=== PATIENT | female | born 1980 | race African-American/Black ===

== ENCOUNTER 2019-05-14 18:26 | Emergency (ER) | payer BC, OTHER ==
[~2019-05-14] VITALS: Ht 157 cm; Wt 95.2 kg
[2019-05-14] MEDS ORDERED: ALB0.5V INH (18:37)
[2019-05-14] MEDS ORDERED: AMOX-358 PO (18:44)
--- NOTE | 2019-05-14 18:45 | ED EENT ---
History of Present Illness General Chief Complaint: Dental Problems/Pain Stated Complaint: FACE SWOLLEN Nursing Triage Note: left dental caries/broken tooth, right sided facial pain. facial swelling. Source: patient Exam Limitations: no limitations History of Present Illness Date Seen by Provider: May 14, 2019 Time Seen by Provider: 18:41 Initial Comments To ER with reports of right maxillary and left mandibular pain and subjective swelling since this morning, this caused her to miss work. She'll need a work note. Timing/Duration: abrupt Severity: moderate Location: dental Prearrival Treatment: no prearrival treatment Associated Symptoms: facial pain/swelling Allergies and Home Medications Allergies Coded Allergies: acetaminophen (Verified Allergy, Unknown, 05/14/19) codeine (Verified Allergy, Unknown, 05/14/19) oxycodone (Verified Allergy, Unknown, 05/14/19) Home Medications Albuterol Sulfate 2.5 Mg/0.5 Ml Vial.neb, 2.5 MG INH Q4H, (Reported) Patient Home Medication List Home Medication List Reviewed: Yes Review of Systems Review of Systems Constitutional: see HPI Eyes: No Symptoms Reported Ears: No Symptoms Reported Nose: no symptoms reported Mouth: see HPI Throat: no symptoms reported Respiratory: no symptoms reported Cardiovascular: no symptoms reported Gastrointestinal: no symptoms reported Past Lrjieky-Tkjdpm-Ckxhrv Hx Patient Social History Alcohol Use: Denies Use Recreational Drug Use: No Smoking Status: Never a Smoker 2nd Hand Smoke Exposure: No Recent Foreign Travel: No Contact w/Someone Who Travel: No Recent Infectious Disease Expo: No Recent Hopitalizations: No Physical Abuse: No Sexual Abuse: No Mistreated: No Fear: No Immunizations Up To Date Tetanus Booster (TDap): Unknown Seasonal Allergies Seasonal Allergies: No Past Medical History Surgeries: Yes Orthopedic, Renal, Tubal Ligation Respiratory: Yes Asthma Cardiac: No Neurological: No : 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 oz. kg; 38.00 BMI Method: General Appearance: WD/WN, no apparent distress Eyes: bilateral eye normal inspection, bilateral eye PERRL, bilateral eye EOMI Ears: bilateral ear auricle normal, bilateral ear canal normal, bilateral ear TM normal Mouth/Throat: pharynx normal, other (no gingival buccal tenderness to palpation though there are any teeth all throughout the mouth with erosion caries fractures and gingivitis. No fluctuance to suggest abscess or swelling that is palpable or visible to suggest cellulitis or fascial abscess) Neck: non-tender, full range of motion; No lymphadenopathy (R), No lymphadenopathy (L) Respiratory: no respiratory distress, no accessory muscle use Neurologic/Psychiatric: alert, normal mood/affect, oriented x 3 Skin: normal color, warm/dry Progress/Results/Core Measures Results/Orders Blood Pressure Mean: 96 POS Departure Impression Primary Impression: Dental caries Disposition: HOME, SELF-CARE Condition: Stable Departure-Patient Inst. Decision time for Depature: 18:43 Patient Instructions: Dental Pain (DC) Add. Discharge Instructions: 1. Follow-up with your dentist. Call tomorrow to make an appointment to be seen. Return to ER for any concerns. Antibiotic as directed, take them with food. All discharge instructions reviewed with patient and/or family. Voiced understanding. Scripts Amoxicillin/Potassium Clav (Augmentin 875-125 Tablet) 1 Each Tablet 1 EACH PO BID, #14 TAB 0 Refills Prov: EVER PEREZ APRN 05/14/19 Work/School Note: Work Release Form Date Seen in the Emergency Department: May 14, 2019 Return to Work: May 15, 2019 EVER PEREZ APRN May 14, 2019 18:45 POS
[2019-05-14 18:54] VITALS: BP 131/79
[2019-05-14] MEDS ORDERED: AUGMENTIN 875 MG TAB (AMOXICILLIN/CLAVULANATE) PO SCH (19:00)
== END 2019-05-14 18:54 | disposition home or self-care (01) ==
LOC: ER 18:28
DX: K02.9 Dental caries, unspecified (principal); J45.909 Unspecified asthma, uncomplicated; Z98.51 Tubal ligation status; Z88.6 Allergy status to analgesic agent; Z88.5 Allergy status to narcotic agent
CPT/HCPCS: 99283

== ENCOUNTER 2019-12-16 18:04 | Emergency (ER) | payer BC ==
[~2019-12-16] VITALS: Ht 154 cm; Wt 97.9 kg
[~2019-12-16 18:04] MED LIST: ALB0.5V INH; AMOX-358 PO
--- NOTE | 2019-12-16 18:50 | NUR ---
PT REFUSED TO GIVE UA STATES JUST WANT AN X-RAY
[2019-12-16 19:03] VITALS: BP 132/99
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
--- OUTSIDE RECORDS SUMMARY | 2019-12-16 22:12 | XMS REPORT | Continuity of Care Document ---
Author Organization Unknown Address Unknown Phone Unavailable Allergies Active Description Code Type Severity Reaction Onset Reported/Identified Relationship to Patient Clinical Status Yes acetaminophen [id number] Sj g Allergy Unknown N/A 05/14/2019 Yes codeine [id number] Drug Allergy Unknown N/A 05/14/2019 Yes oxycodone [id number] Drug Allergy Unknown N/A 05/14/2019 Medications There is no data. Problems Date Dx Coded Attending Type Code Diagnosis Diagnosed By 05/14/2019 EVER PEREZ APRN Ot J45.909 UNSPECIFIED ASTHMA, UNCOMPLICATED 05/14/2019 EVER PEREZ APRN Ot K02 .9 DENTAL CARIES, UNSPECIFIED 05/14/2019 EVER PEREZ APRN Ot R22 .0 LOCALIZED SWELLING, MASS AND LUMP, HEAD 05/14/2019 EVER PEREZ APRN Ot Z88 .5 ALLERGY STATUS TO NARCOTIC AGENT STATUS 05/14/2019 EVER PEREZ APRN Ot Z88 .6 ALLERGY STATUS TO ANALGESIC AGENT STATUS 05/14/2019 EVER PEREZ APRN Ot Z98.51 TUBAL LIGATION STATUS 05/16/2019 EVER PEREZ APRN Ot J45.909 UNSPECIFIED ASTHMA, UNCOMPLICATED 05/16/2019 EVER PEREZ APRN Ot K02 .9 DENTAL CARIES, UNSPECIFIED 05/16/2019 EVER PEREZ APRN Ot R22 .0 LOCALIZED SWELLING, MASS AND LUMP, HEAD 05/16/2019 EVER PEREZ APRN Ot Z88 .5 ALLERGY STATUS TO NARCOTIC AGENT STATUS 05/16/2019 EVER PEREZ APRN Ot Z88 .6 ALLERGY STATUS TO ANALGESIC AGENT STATUS 05/16/2019 EVER PEREZ APRN Ot Z98.51 TUBAL LIGATION STATUS Procedures There is no data. Results There is no data. Encounters ACCT No. Visit Date/Time Discharge Status Pt. Type Provider Facility Loc./Unit Complaint [id number] 12/16/2019 18:06:00 020 19:04:00 DIS Emergency ALEJANDRO LAGUNAS DO a [facility] ER BACK PAIN [id number] 05/14/2019 18:28:00 019 18:54:00 DIS Emergency EVER PEREZ APRN [facility] ER FACE SWOLLEN
== END 2019-12-16 19:04 | disposition left against medical advice (07) ==
LOC: EDUNIT# 18:04 → ER 18:06
DX: M54.5 Low back pain (principal); J45.909 Unspecified asthma, uncomplicated; Z88.6 Allergy status to analgesic agent; Z88.5 Allergy status to narcotic agent; W22.8XXA Striking against or struck by other objects, initial encounter; Y92.59 Other trade areas as the place of occurrence of the external cause
CPT/HCPCS: 99281

== ENCOUNTER → 2019-12-23 | Outpatient (REF) ==
--- NOTE | 2019-12-23 10:13 | Diagnostic Imaging Report ---
INDICATION: Injury with back pain. FINDINGS: Frontal and lateral lumbar spine radiographs reveal normal body heights aligned anatomically. The disc space is preserved. No identifiable fracture. Sacrococcygeal curvature appeared normal. The SI joints showed no diastases. IMPRESSION: Unremarkable radiographic appearance of the anatomically aligned lumbar spine. Dictated by: Dictated on workstation # [id number]
== END ==
LOC: OCC 09:38
PROVIDERS: ATTEND Family Medicine
DX: M54.9 Dorsalgia, unspecified (principal)
CPT/HCPCS: 72100

== ENCOUNTER → 2020-01-21 | Outpatient (REF) ==
--- NOTE | 2020-01-23 08:12 | Diagnostic Imaging Report ---
EXAMINATION: MRI lumbar spine without contrast on 01/21/2020. INDICATION: Low back pain and low back injury. COMPARISON: No prior MRI study is available for comparison. FINDINGS: Curvature and alignment of the lumbar spine are normal. Vertebral body heights are maintained. There is no geographic marrow lesion or acute compression fracture. There is fairly normal height and signal intensity to the lumbar discs, apart from some mild desiccation at the L5-S1 level. The conus is unremarkable at the L1 level. T12-L1: The central canal and neural foramina are widely patent. L1-L2: Central canal and neural foramina are widely patent. L2-L3: Central canal and neural foramina are widely patent. L3-L4: Central canal and neural foramina are widely patent. L4-L5: Central canal and neural foramina are widely patent. L5-S1: There is some mild broad-based disc bulging present but no resultant central canal stenosis is seen. There is some narrowing of the lateral recesses, bilaterally. Mild neural foraminal narrowing is present as well, bilaterally. Paraspinous tissues are unremarkable. IMPRESSION: Mild L5-S1 degenerative disc disease with mild broad-based disc bulging. This does result in narrowing of the lateral recesses and neural foramina, bilaterally. No central canal stenosis is detected. Dictated by: Dictated on workstation # [id number]
== END ==
LOC: RAD 14:00
PROVIDERS: ATTEND Family Medicine
DX: M51.37 Other intervertebral disc degeneration, lumbosacral region (principal)
CPT/HCPCS: 72148

== ENCOUNTER 2020-03-22 22:37 | Emergency (ER) | payer BC ==
[~2020-03-22] VITALS: Ht 134 cm; Wt 99.7 kg
[2020-03-23 00:14] LABS: BILIRUBIN,URINE NEGATIVE (NEGATIVE); CLARITY,URINE SL CLOUDY; COLOR,URINE YELLOW; GLUCOSE, URINE (UA) NEGATIVE (NEGATIVE); KETONES,URINE NEGATIVE (NEGATIVE); LEUKOCYTE ESTERASE ,URINE NEGATIVE (NEGATIVE); NITRITE,URINE NEGATIVE (NEGATIVE); PROTEIN,URINE NEGATIVE (NEGATIVE)
[2020-03-23 00:23] LABS: BACTERIA,URINE FEW /HPF
[2020-03-23] MEDS ORDERED: PRD20T PO (00:55)
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
[2020-03-23] MEDS ORDERED: KETOROLAC 30 MG/ML VIAL IM ONE (01:00)
[2020-03-23 01:13] VITALS: BP 150/102
== END 2020-03-23 01:13 | disposition home or self-care (01) ==
LOC: EDUNIT# 22:37 → ER 22:39
DX: M54.16 Radiculopathy, lumbar region (principal); M51.26 Other intervertebral disc displacement, lumbar region; E66.9 Obesity, unspecified; Z68.43 Body mass index [BMI] 50.0-59.9, adult; J45.909 Unspecified asthma, uncomplicated; Z88.5 Allergy status to narcotic agent; Z88.6 Allergy status to analgesic agent; Z79.52 Long term (current) use of systemic steroids
CPT/HCPCS: 81000; 99284

== ENCOUNTER → 2021-06-24 | Outpatient (CLI) | payer OTHER ==
[~2021-06-24] MED LIST changes: +PRD20T PO
--- NOTE | 2021-06-24 12:00 | Diagnostic Imaging Report ---
Clinical indications: Patient has low back pain from heavy lifting and getting hit in the back by a door. Exam: MRI of the lumbar spine performed without IV contrast. Sagittal T2, sagittal T1, sagittal T2 fat-sat, and axial T2. Comparison: MRI of the lumbar spine without contrast dated 01/21/2020. Findings: Five lumbar type vertebra are identified. Lumbar spine has normal alignment with no fracture or dislocation. The lumbar vertebra have normal T1 and T2 signal. The visualized portions of the distal spinal cord, conus medullaris, and cauda equina have normal anatomic appearance. The conus medullaris tip is seen at the lower L1 vertebral body level. No paraspinal soft tissue abnormality is seen. There is no significant central spinal canal or neural foramen narrowing. Besides the L5-S1 level, there is no significant degenerative disease. The intervertebral disk spaces are well-preserved. L1-L2: Unremarkable. L2-L3: Unremarkable. L3-L4: Unremarkable. L4-L5: Unremarkable. L5-S1: There is interval slight increased size of the small posterior disk extrusion/herniation with annular tear. There is low T2 degenerative disk signal changes. There is no significant central canal stenosis. There is stable mild bilateral neural foraminal narrowing. There is minimal bilateral facet arthropathy. Impression: 1: Slight increased size of a small L5-S1 posterior disk herniation with annular tear. There is no significant central canal stenosis. There are stable minimal bilateral neural foraminal narrowing. 2: Otherwise, the remainder of the lumbar spine is unremarkable. Dictated by: Dictated on workstation # [id number]
== END ==
LOC: RAD 10:15
PROVIDERS: ATTEND Independent Medical Examiner
DX: M51.27 Other intervertebral disc displacement, lumbosacral region (principal); M51.37 Other intervertebral disc degeneration, lumbosacral region; M48.07 Spinal stenosis, lumbosacral region
CPT/HCPCS: 72148

== ENCOUNTER 2021-09-12 15:47 | Emergency (ER) | payer OTHER ==
[~2021-09-12] VITALS: Ht 157 cm; Wt 104.0 kg
--- NOTE | 2021-09-12 16:09 | ED Back Pain ---
General Chief Complaint: Back Problems Stated Complaint: HX HERNIATED DISC, BACK PAIN Nursing Triage Note: PT AMB TO [facility] LOWER BACK PA[facility], PT STATES SHE HAS RECENTLY HAD MRI ORDERED BY ARCADIO VILLANUEVA. PT STATES PAIN HAS INCREASED TO 8/10. STATES INJURY OCCURED ALMOST 2 YEARS AGO. Source of Information: Patient Exam Limitations: No Limitations History of Present Illness Date Seen by Provider: Sep 12, 2021 Time Seen by Provider: 16:06 Initial Comments Patient is a 40-year-old female presents ED with back pain. Pain is located to the lower back. She gets numbness and tingling bilateral lower extremities. This has been ongoing pain for the past 2 years from a work injury. Pain is progressive got worse over the past 2 or 3 months. She states now it feels like something is squeezing every time she moves in the lower back. She states she had an MRI performed here that showed L5-S1 posterior disc herniation with annular tear. There is no significant central canal stenosis. Patient has no bowel or urine incontinence or saddle paresthesia. She states the pain is getting worse feels like her back is swollen. She denies fever, chills, chest pain, shortness of breath, headache, dizziness. Patient denies of any lower extremity weakness. Patient states she has seen pain management in the past but they injected in the wrong location. Follow-up with neurosurgery who did not recommend surgery at this time. Patient denies any trauma. Allergies and Home Medications Allergies Coded Allergies: acetaminophen (Verified Allergy, Unknown, 05/14/19) codeine (Verified Allergy, Unknown, 05/14/19) oxycodone (Verified Allergy, Unknown, 05/14/19) Patient Home Medication List Home Medication List Reviewed: Yes Albuterol Sulfate (Albuterol Sulfate) 2.5 Mg/0.5 Ml Vial.neb, 2.5 MG INH Q4H, (Reported) Entered as Reported by: ROSA TINSLEY on 05/14/191836 Amoxicillin/Potassium Clav (Augmentin 875-125 Tablet) 1 Each Tablet, 1 EACH PO BID Prescribed by: EVER PEREZ on 05/14/19 184 Meloxicam (Meloxicam) 15 Mg Tablet, 15 MG PO DAILY Prescribed by: PHILIPPE TREJO on 09/12/21 1626 Methylprednisolone (Medrol Dose pack) 4 Mg Tab, 4 MG PO UD Prescribed by: PHILIPPE TREJO on 09/12/21 1626 Prednisone (Prednisone) 20 Mg Tab, 40 MG PO DAILY Prescribed by: PAULA MCCARTY on 03/23/20 0055 Tramadol HCl (Tramadol HCl) 50 Mg Tablet, 50 MG PO Q6H PRN for PAIN-MODERATE (5- 7) Prescribed by: PHILIPPE TREJO on 09/12/21 162 Review of Systems Constitutional: No chills, No diaphoresis EENTM: No blurred vision, No double vision, No vision loss, No mouth pain, No mouth swelling Respiratory: No cough, No dyspnea on exertion Cardiovascular: No chest pain, No edema, No palpitations Gastrointestinal: No no symptoms reported, No abdominal pain, No diarrhea, No nausea, No vomiting Genitourinary: No decreased output Musculoskeletal: back pain, joint pain; No muscle pain, No muscle stiffness, No muscle cramps Past Bswwegj-Svnwcu-Vimmuw Hx Patient Social History Tobacco Use?: No Substance use?: No Alcohol Use?: No Pt feels they are or have been: No Immunizations Up To Date Tetanus Booster (TDap): Less than 5yrs Seasonal Allergies Seasonal Allergies: No Past Medical History Surgeries: Yes (L WRIST FX/ORIF;R LOWER LEG FX/ORIF;URETERAL SURGERY) Orthopedic, Renal, Tubal Ligation Respiratory: Yes Asthma Cardiac: No Neurological: No Female Reproductive Disorders: Denies [employer] History: Tubal Ligation Genitourinary: Yes (URETERAL SURGERY ) Gastrointestinal: No Musculoskeletal: Yes (L WRIST FX/ORIF;R LOWER LEG FX/ORIF;R ARM FX-NO SURGERY) Chronic Back Pain, Fractures Endocrine: No HEENT: No Cancer: No Psychosocial: No Integumentary: No Blood Disorders: No Physical Exam Vital Signs Vital Signs - First Documented 09/12/21 15:53 Temp 36.0 Pulse 78 Resp 18 B/P (MAP) 137/83 (101) Pulse Ox 96 Capillary Refill : Less Than 3 Seconds Height, Weight, BMI Height: '" Weight: lbs. oz. kg; 42.00 BMI Method: General Appearance: No Apparent Distress, WD/WN HEENT: PERRL/EOMI, TMs Normal, Normal ENT Inspection, Pharynx Normal Neck: Full Range of Motion, Normal Inspection, Non Tender, Supple Cardiovascular: Regular Rate, Rhythm, No Edema, No Gallop, No JVD, No Murmur Respiratory: Chest Non Tender, Lungs Clear, Normal Breath Sounds, No Accessory Muscle Use, No Respiratory Distress Gastrointestinal: Normal Bowel Sounds, No Organomegaly, No Pulsatile Mass, Non Tender Back: No CVA Tenderness, Other (Lumbar midline tenderness. Bilateral lumbar paraspinal muscle tenderness. Normal active range of motion.) Extremity: Normal Capillary Refill, Normal Inspection, Normal Range of Motion, Other (Positive straight raise left leg) Neurologic/Psychiatric: Alert, Oriented x3, No Motor/Sensory Deficits, Normal Mood/Affect Skin: Normal Color Progress/Results/Core Measures Results/Orders My Orders Orders - ZINA BHAGAT Ketorolac Injection (Toradol Injection) (09/12/21 16:15) Orphenadrine Inj (Ed Only) (Norflex Inje (09/12/21 16:15) Medications Given in ED Current Medications Medications Dose Ordered Sig/Clarke Route Start Time Stop Time Status Last Admin Dose Admin Ketorolac Tromethamine 30 mg ONCE ONCE IVP 09/12/21 16:15 09/12/21 16:16 DC 09/12/21 16:25 30 MG Orphenadrine Citrate 60 mg ONCE ONCE IM 09/12/21 16:15 09/12/21 16:16 DC 09/12/21 16:25 60 MG Vital Signs/I&O 09/12/21 09/12/21 15:53 16:46 Temp 36.0 36.0 Pulse 78 78 Resp 18 18 B/P (MAP) 137/83 (101) 137/83 Pulse Ox 96 96 Blood Pressure Mean: 101 Departure Communication (PCP) Patient without any bowel or urine incontinence, saddle paresthesia. No recent traumas. Numbness and tingling bilateral lower extremity worse on the left. Normal strength. Neurovascular intact. Bilateral lumbar paraspinal muscle tenderness. Patient was given Toradol and Norflex. She has a known L4-L5 posterior disc bulge with annular tear. No severe spinal stenosis. No neurological red flag findings. Patient would benefit with epidural injections and physical therapy. If any worsening symptoms return back to ED for further evaluation. Concerned that this may be getting worse and she will need to follow-up outpatient. Provided resources for neurosurgery at [facility]. Impression Primary Impression: Back pain Disposition: 01 HOME, SELF-CARE Condition: Stable Departure-Patient Inst. Decision time for Depature: 16:24 Referrals: RADHA YEPEZ MD (PCP/Family) Primary Care Physician Patient Instructions: Low Back Pain (DC) Scripts Meloxicam (Meloxicam) 15 Mg Tablet 15 MG PO DAILY, #20 TAB Prov: ZINA BHAGAT 09/12/21 Tramadol HCl (Tramadol HCl) 50 Mg Tablet 50 MG PO Q6H PRN for PAIN-MODERATE (5-7), #14 TAB Prov: ZINA BHAGAT 09/12/21 Methylprednisolone (Medrol Dose pack) 4 Mg Tab 4 MG PO UD for 6 Days, #21 TAB as directed per dose pack Prov: ZINA BHAGAT 09/12/21 Work/School Note: Work Release Form Date Seen in the Emergency Department: Sep 12, 2021 Return to Work: Sep 15, 2021 ZINA BHAGAT Sep 12, 2021 16:08
[2021-09-12] MEDS ORDERED: KETOROLAC 30 MG/ML VIAL IVP ONE (16:15)
[2021-09-12] MEDS ORDERED: ORPHENADRINE 60 MG/2 ML (NORFLEX) AMP (ED ONLY) IM ONE (16:15)
[2021-09-12] MEDS ORDERED: NF-METHYLP PO (16:26)
[2021-09-12] MEDS ORDERED: MELO15TA39 PO (16:26)
[2021-09-12] MEDS ORDERED: TRAM50TA3 PO (16:26)
[2021-09-12 16:46] VITALS: BP 137/83
== END 2021-09-12 16:46 | disposition home or self-care (01) ==
LOC: EDUNIT# 15:47 → ER 15:49
DX: M54.50 Low back pain, unspecified (principal)
CPT/HCPCS: 99284